=== PATIENT | male | born 1940 | race Caucasian/White ===

== ENCOUNTER → 2021-06-04 10:37 | Outpatient (CLI) | payer MEDICARE, SELFPAY ==
[2021-06-04 11:50] LABS: Thyroid Stim Hormone (TSH) 0.75 uIU/mL (0.358-3.74)
== END ==
PROVIDERS: PCP Student in an Organized Health Care Education/Training Program; Referring Provider Internal Medicine Cardiovascular Disease; Visit Provider Internal Medicine Cardiovascular Disease
DX: R00.1 Bradycardia, unspecified (principal)
CPT/HCPCS: 36415; 84443

== ENCOUNTER → 2021-06-10 09:59 | Outpatient (CLI) | payer MEDICARE, SELFPAY ==
--- NOTE | 2021-06-10 10:06 | ECHOD_ITS ---
Reason For Study: Arrhythmia Procedure This was a 2D Doppler, Color Flow transthoracic echocardiogram. Exam performed in department. Left Ventricle Normal LV size. Left ventricular systolic function is normal. The estimated ejection fraction is 60 %. Normal diastology for age. No regional wall motion abnormalities noted. Right Ventricle Normal RV size. Normal systolic function. Atria Normal left atrium. Normal right atrium. Mitral Valve Normal mitral valve. Mild (1+) mitral valve insufficiency. Tricuspid Valve Normal tricuspid valve. Mild tricuspid valve insufficiency. Pulmonary artery systolic pressure is 30 mmHg. Aortic Valve Normal aortic valve. Trisinus/trileaflet aortic valve. Mild (1+) aortic valve insufficiency. Pulmonic Valve Normal pulmonic valve. Great Vessels Normal aortic root. The pulmonary artery is normal size. Normal inferior vena cava. Pericardium/Pleural No pericardial effusion. MMode/2D Measurements & Calculations LVIDd: 4.8 cm IVSd: 1.2 cm Ao root diam: 4.0 cm LVIDs: 3.0 cm LVPWd: 0.96 cm LA dimension: 3.7 cm RVDd: 4.4 cm FS: 37.3 % LAV(MOD-bp): 55.8 ml LA A4 area: 18.3 cm2 RA A4 area: 18.7 cm2 LAV(MOD-bp) Indexed: 27.9 ml/m2 LAV(MOD-sp2): 67.4 ml LAV(MOD-sp4): 49.0 ml Time Measurements MV dec time: 0.23 sec Doppler Measurements & Calculations MV E max jaya: 67.6 cm/sec Lat Peak E' Jaya: 7.2 cm/sec Med Peak E' Jaya: 9.2 cm/sec MV A max jaya: 49.8 cm/sec E/E' lat: 9.4 E/E' med: 7.3 MV E/A: 1.4 MV V2 max: 69.1 cm/sec MV P1/2t max jaya: 69.5 cm/sec Ao V2 max: 133.7 cm/sec MV max P.9 mmHg MV P1/2t: 86.4 msec Ao max P.2 mmHg MV V2 mean: 32.4 cm/sec MV dec slope: 235.3 cm/sec2 MV mean P.52 mmHg MVA(P1/2t): 2.5 cm2 MV V2 VTI: 27.2 cm LV V1 max: 89.5 cm/sec MR max jaya: 538.4 cm/sec PA V2 max: 117.5 cm/sec LV V1 max P.2 mmHg MR max P.9 mmHg TR max jaya: 257.6 cm/sec TR max P.5 mmHg ECHO/Echo Complete Interpretation Summary Normal LV size. Left ventricular systolic function is normal. The estimated ejection fraction is 60 %. Mild (1+) mitral valve insufficiency. Mild tricuspid valve insufficiency. Ordering Physician: Karl Sanchez Referring Physician: Michael Ramachandran Performed By: Nick Quijano RCS
--- NOTE | 2021-06-10 17:07 | STRESSREP_ITS ---
Stress Test Report Exercise stress test. 81-year-old man with a history of cardiac dysrhythmias. Resting EKG demonstrated sinus bradycardia with a rate of 44 bpm and resting blood pressure of 130/64 mmHg. The patient exercised according to the regular Gio protocol, for total duration of 3 minutes and 9 seconds. The maximum heart rate attained was 150 bpm which was 106% of max impact on heart rate the maximum workload was 4.9 metabolic equivalents. The patient appeared to maintain sinus rhythm throughout the recording with later development of what ap peared to be a junctional tachycardia with a rate of approximately 121 bpm. The patient appeared to stay in this rhythm during recovery for a period of approximately 5 minutes. The test was terminated due to shortness of breath. Frequent mitral ventricular complexes were noted with positive vector delineation in leads II, III and aVF. No runs of sustained tachyarrhythmia were noted. There were no EKG changes suggestive of ischemia. Post exercise prior to the disc continuation of the monitoring the resting EKG demonstrated a junctional tachycardia with a rate of 113 bpm. No significant pauses were noted. Conclusion: Exercise stress test with no EKG changes suggestive of ischemia. Sinus rhythm and junctional tachycardia noted. Premature ventricular complexes present.
== END ==
PROVIDERS: PCP Student in an Organized Health Care Education/Training Program; Referring Provider Internal Medicine Cardiovascular Disease; Visit Provider Internal Medicine Cardiovascular Disease
DX: I47.1 Supraventricular tachycardia (principal); I34.0 Nonrheumatic mitral (valve) insufficiency; R06.02 Shortness of breath
CPT/HCPCS: 93017; 93225; 93226; 93306

== ENCOUNTER → 2021-06-17 09:27 | Outpatient (CLI) | payer MEDICARE, SELFPAY ==
[2021-06-17 09:49] LABS: Absolute Lymphocyte Count 1.17 X10^3/uL (0.83-4.51); Absolute Neutrophil Count 3.1 X10^3/uL (2.0-7.7); Basophil# 0.04 X10^3/uL; Basophil% 0.8 % (0-1); Eosinophil# 0.07 X10^3/uL; Eosinophils% 1.4 % (0-5); Hematocrit 39.5 % (40-54); Hemoglobin 13.5 g/dL (13.0-16.5); Lymphocyte # 1.17 X10^3/ul (0.83-4.51); Lymphocyte % 24.1 % (19-41); Mean Corp Hgb Conc 34.2 g/dL (32-36); Mean Corpuscular Hgb 34.2 pg (27.0-32.0); Monocyte# 0.48 X10^3/uL; Monocyte% 9.9 % (0-10); NRBC Flagged by Analyzer 0 % (0-5); Neutrophil # 3.09 X10^3/uL (2.7-7.7); Neutrophil % 63.6 % (47-70); Platelet Count 226 K/mm3 (150-450); RBC Distribution Width CV 12.8 % (11.6-14.6); RBC Distribution Width SD 47.6 fl (35.1-43.9); Red Blood Count 3.95 M/mm3 (4.6-6.2); White Blood Count 4.9 K/mm3 (4.4-11.0)
[2021-06-17 10:02] LABS: International Normalized Ratio 1.1; Prothrombin Time (Protime)PT. 13.3 SECONDS (11.7-14.9)
[2021-06-17 10:03] LABS: Partial Thromboplast Time 32.2 Seconds (24.1-36.2)
[2021-06-17 10:22] LABS: Anion Gap 7 (5-15); BUN 17 mg/dL (7-18); BUN/Creat Ratio 14.5 RATIO (10-20); Calcium,Total 8.9 mg/dL (8.5-10.1); Chloride 103 mmol/L (98-107); Creatinine, Serum 1.17 mg/dL (0.70-1.30); EST Glomerular Filtration Rate 64 mL/min (>60); Est Glom Filt Rate - Afr Amer 77 mL/min (>60); Glucose 91 mg/dL (74-106); Sodium Level 139 mmol/L (136-145)
== END ==
PROVIDERS: PCP Student in an Organized Health Care Education/Training Program; Referring Provider Internal Medicine Cardiovascular Disease; Visit Provider Internal Medicine Cardiovascular Disease
DX: I49.3 Ventricular premature depolarization (principal); I47.1 Supraventricular tachycardia; I34.0 Nonrheumatic mitral (valve) insufficiency; G31.83 Neurocognitive disorder with Lewy bodies; F02.80 Dementia in other diseases classified elsewhere, unspecified severity, without behavioral disturbance, psychotic disturbance, mood disturbance, and anxiety; D72.819 Decreased white blood cell count, unspecified; D64.9 Anemia, unspecified
CPT/HCPCS: 36415; 80048; 85025; 85610; 85730

== ENCOUNTER 2021-07-10 14:30 | Observation (INO) | payer MEDICARE, SELFPAY ==
--- NOTE | 2021-07-07 15:40 | RAD_ITS ---
STUDY: X-RAY CHEST REASON FOR EXAM: Male, 81 years old. CHEST PAIN ep study TECHNIQUE: XR Chest 2 Views COMPARISON: Prior comparison studies are not available for review at this time. FINDINGS: There are bilateral pleural effusions. There are bilateral infiltrates. Normal size heart. Normal mediastinum and migel. Normal visualized pulmonary arteries. There is atherosclerotic calcification of the aortic arch with tortuosity. There are diffuse degenerative changes of the visualized thoracic spine. There is degenerative osteoarthritis of the bilateral shoulders. There is no demonstrated abnormality of the visualized soft tissue structures of the upper abdomen. RAD/Chest PA and Lateral IMPRESSION: There are no acute findings. Electronically Signed: Chalino Espinoza MD at 16:36 EST , Service support ,
[2021-07-07 16:17] LABS: Absolute Neutrophil Count 2.9 X10^3/uL (2.0-7.7); Basophil# 0.05 X10^3/uL; Eosinophil# 0.11 X10^3/uL; Eosinophils% 2.3 % (0-5); Hematocrit 40.7 % (40-54); Hemoglobin 13.7 g/dL (13.0-16.5); Lymphocyte % 26.8 % (19-41); Mean Corp Hgb Conc 33.7 g/dL (32-36); Mean Corpuscular Hgb 33.7 pg (27.0-32.0); Mean Platelet Vol. 10.1 fl (6.2-12.0); Monocyte% 10.3 % (0-10); NRBC Flagged by Analyzer 0 % (0-5); Neutrophil # 2.88 X10^3/uL (2.7-7.7); Neutrophil % 59.4 % (47-70); Platelet Count 240 K/mm3 (150-450); RBC Distribution Width CV 12.8 % (11.6-14.6); RBC Distribution Width SD 47.6 fl (35.1-43.9); Red Blood Count 4.07 M/mm3 (4.6-6.2); White Blood Count 4.9 K/mm3 (4.4-11.0)
[2021-07-07 17:00] LABS: Anion Gap 5 (5-15); BUN 23 mg/dL (7-18); BUN/Creat Ratio 19.8 RATIO (10-20); Calcium,Total 8.9 mg/dL (8.5-10.1); Chloride 104 mmol/L (98-107); Creatinine, Serum 1.16 mg/dL (0.70-1.30); EST Glomerular Filtration Rate 65 mL/min (>60); Est Glom Filt Rate - Afr Amer 78 mL/min (>60); Glucose 89 mg/dL (74-106); Potassium 4.4 mmol/L (3.5-5.1); Sodium Level 137 mmol/L (136-145)
[2021-07-09 07:32] VITALS: BMI 21.5
[2021-07-10] VITALS (9 sets, daily range): BP systolic 112–131; BP diastolic 60–84; PULSE 39–63; RESP 16–22; TEMP 36.6; O2SAT 92–99; BMI 21.5
--- NOTE | 2021-07-10 14:10 | OP.PCM_ITS ---
Operative Report Date of Procedure: 07/10/21 History: [ ] Electrophysiology Report The Patient was brought to the EP Catheterization Laboratory at [facility] after informed consent and assessment of anesthesia / sedation. Intermittent bolus of Versed and Fentanyl were used for sedation and analgesia. The right groin was prepped and draped in usual sterile manner. Using the Seldinger technique the femoral vein was accessed 3 times and diagnostic electrophysiology catheters were positioned in the high right atrium, His and right ventricle and CS/LA. Programmed stimulation (pacing and mapping) were completed of the right atrium, and right ventricle and CS/LA were completed at baseline state and during 3 ugm/minute Isuprel Infusion. Findings: Surface Measurements: MI: 270 QRS: 100normal Morphology: normal QT: 460ms BASELINE ISUPREL SCL: 1490 SCL: 1010 AH: 170 AH: 120 HV: 45 HV: 45 MAXIMUM SNRT: 1900 CSNRT: 510 AVBCL: 700 AVBCL: VABCL: vad VABCL: DECREMENTAL CONDUCTION? [ Y N] DECREMENTAL CONDUCTION? 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 ABLATION OF: atrial flutter ABLATION PARAMETERS: 40 W 60 SECONDS ABLATION CATHETER USED: irrigated tip RESULTS OF ABLATION SITE OF ABLATION: CTI and Slow Pathway SUCCESSFUL Ablation of CTI flutter with confirmation of bidirectional conduction block Successful SP ablation for typical AVNRT POST ABLATION TESTING BASELINE ISUPREL SCL: 1290 SCL: 890 AH: [ ] AH: [ ] HV: [ ] HV: [ ] AVBCL: >600 AVBCL: 570 VA BCL:VAD VA BCL: VAD BIDIRECTIONAL BLOCK ACHIEVED: [Y N] SEPTAL TO LATERAL BLOCK CONDUCTION TIME: [ ] LATERAL TO SEPTAL BLOCK CONDUCTION TIME: [ ] CONCLUSIONS: SUCCESSFUL Ablation of CTI flutter with confirmation of bidirectional conduction block 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
[2021-07-10] MEDS: Memantine Hydrochloride 10 MG Tablet PO (21:45)
--- NOTE | 2021-07-10 23:22 | PCS.PANDOC ---
PANDEMIC DOCUMENTATION INITIATED: Date: 04/07/2021 Time: 190
[2021-07-11 02:00] VITALS: PULSE 53
[2021-07-11 04:20] VITALS: BP 130/86; PULSE 53; RESP 18; TEMP 36.6; O2SAT 98
--- NOTE | 2021-07-11 05:31 | EKG12_ITS ---
Test Reason : AM EKG Blood Pressure : / mmHG Vent. Rate : 054 BPM Atrial Rate : 054 BPM P-R Int : 242 ms QRS Dur : 100 ms QT Int : 448 ms P-R-T Axes : 029 -21 034 degrees QTc Int : 424 ms Sinus bradycardia with 1st degree A-V block with Premature atrial complexes Otherwise normal ECG When compared with ECG of 10-JUN-2021 10:53, MANUAL COMPARISON REQUIRED, DATA IS UNCONFIRMED Confirmed by EDER DOWNING, JUSTEN ([id number]), mapping editor KOREY DEJESUS ([id number]) on 07/11/2021 2:17:08 P M Referred By: Pedro Wall Confirmed By:SUSI GAINES MD
[2021-07-11 07:00] VITALS: PULSE 54
--- NOTE | 2021-07-11 07:27 | PN.CARD_ITS ---
Subjective Subjective Patient seen and evaluated. Appears to be doing quite well this morning. Objective Data Vital Signs: Vital Signs Temp Pulse Resp BP Pulse Ox 97.9 F 53 L 18 130/86 H 98 07/11/21 04:20 07/11/21 04:20 07/11/21 04:20 07/11/21 04:20 07/11/21 04:20 Oxygen Delivery Method Room Air Weight: 165 lb 9.074 oz Body Mass Index (BMI) 21.5 Intake & Output: Intake and Output for Last 24 Hours 07/09/21 07/10/21 07/11/21 23:59 23:59 23:59 Intake Total 240 / 240 Output Total 350 / 350 Balance -110 / -110 Lab / Micro Data Result Diagrams: 07/07/21 16:01 07/07/21 16:01 Cardiology Labs/Tests Rhythm: EKG: ECHO: Stress Test: Cardiac Cath: PCI: CT Surgery: Holter monitor: EPS: PPM: CXR: Chest CT Scan: Physical Exam Const alert, oriented x3 and no apparent distress General Appearance: cooperative HEENT hearing grossly normal bilaterally Head and Scalp: atraumatic Eyes EOMs intact bilaterally Neck General: normal visual inspection Chest inspection of chest normal and palpation of chest normal Resp normal respiratory effort Auscultation: clear to auscultation bilaterally Cardio regular rate, regular rhythm, S1 normal heart sound and S2 normal heart sound Jugular Venous Distention: JVD GI normal to inspection, nondistended, normoactive bowel sounds Extremity normal capillary refill and no pedal edema Peripheral Pulses: Yes pulses 2+ throughout and femoral pulses present Skin no rashes or lesions noted Neuro oriented x3 and CN's II-XII intact bilaterally Psych Appearance: grossly normal and appropriate Assessment & Plan Assessment/Plan (1) History of radiofrequency ablation procedure for cardiac arrhythmia: PLAN: He is status post radiofrequency ablation for junctional tachycardia. He appears to be doing quite well this morning. EKG done this mo rning demonstrates sinus bradycardia with a rate of 49 bpm. Patient's groin appears to be stable. He will be discharged for outpatient follow-up.
--- NOTE | 2021-07-11 07:29 | PCM.DC ---
Discharge Instructions Diet Discharge Diet: Low fat / Low cholesterol and 2000 Calorie Control Diet Activity Lifting Restrictions: 10 pounds and also avoid any pushing or pulling for 3 days after your test. Additional Activity Instructions:: You must have someone drive you home. Do not drive until instructed by your doctor. You must have someone stay with you all night after your test. Rest in bed or on the couch until the next morning. Limit the number of times you go up and down stairs the day of your test. Apply pressure to the puncture site if you sneeze or cough. Dressing / Incision Call your doctor if your incision/area has: Continuous Slow Oozing, Increased Pain/ Swelling, Increased Redness and Swelling at the incision site Call your doctor if you observe: Numbness or Tingling Additional Dressing/Incision Instructions:: Keep the dressing (bandage) on until the next morning. You may then shower, but do not take a tub bath for 5 days after your test. It is normal to have some tenderness and discomfort at the puncture site. Sometimes bruising also occurs. However, if pain, numbness, or coldness occurs below the puncture site (in your leg, toes, arms or fingers) call your doctor at once. You may have a small, marble sized knot at the puncture site. This is normal. Do not rub it. It will go away in 4-6 weeks. Bleeding can occur from the area where the puncture was done. Blood may spurt or drip from the site. If blood spurts, apply pressure right away to stop bleeding and call 911. Although rare, bleeding into the tissue (hematoma) can also occur. If this happens, a large, firm area goose egg under the skin will appear. If any of these occur, lie down as flat as you can and have someone apply firm pressure to the cath site with a gauze pad or a clean washcloth for 10-15 minutes. Call 911 or go to the Emergency Department. Follow Up Care When: Follow-up in [facility] office Test Results: Test results from this visit will be discussed in further detail at your follow-up appointment, if applicable. Discharge Plan Admission Admit Date/Time: 07/10/21 14:30 Attending Provider: Karl Sanchez Primary Care Provider: Michael Ramachandran Discharge Orders/Prescriptions Prescriptions: No Action Research Medications PO RF: 0 memantine 10 mg tablet 10 mg PO BID RF: 0 cyanocobalamin (vitamin B-12) 1,000 mcg capsule 1,000 mcg PO DAILY RF: 0 aspirin [Adult Aspirin Regimen] 81 mg tablet,delayed release (DR/EC) 81 mg PO DAILY RF: 0 cholecalciferol (vitamin D3) 50 mcg (2,000 unit) capsule 50 mcg PO DAILY RF: 0 ibuprofen 200 mg capsule 400 mg PO Q6H PRN (Reason: Pain) RF: 0 pravastatin 10 mg tablet 10 mg PO DAILY RF: 0 turmeric 400 mg capsule 400 mg PO DAILY RF: 0 Referrals / Follow Up: Michael Ramachandran DO [Primary Care Provider] - Disposition Disposition (needs filled in before D/C Order can be placed): Home, Self Care
--- NOTE | 2021-07-11 09:29 | PHA.DC.MR ---
Pharmacy Service has performed discharge medication reconciliation for this patient. The patient's discharge medication list was reviewed for discrepancies and discrepancies were resolved. Home Medications Research Medications PO 05/29/21 aspirin 81 mg tablet,delayed release 81 mg PO DAILY 05/29/21 cholecalciferol (vitamin D3) 50 mcg (2,000 unit) capsule 50 mcg PO DAILY 05/29/21 cyanocobalamin (vitamin B-12) 1,000 mcg capsule 1,000 mcg PO DAILY 05/29/21 ibuprofen 200 mg capsule 400 mg PO Q6H PRN cap 05/29/21 memantine 10 mg tablet 10 mg PO BID 05/29/21 pravastatin 10 mg tablet 10 mg PO DAILY tab 07/07/21 turmeric 400 mg capsule 400 mg PO DAILY cap 07/07/21
[2021-07-11] MEDS: Pravastatin 20 MG Tablet 10 MG PO (10:39)
[2021-07-11] MEDS: Cholecalciferol (VIT D3) 25 MCG TABLET (1,000 UNITS) 50 MCG PO (10:39)
[2021-07-11] MEDS: Cyanocobalamin 500 MCG Tablet 1000 MCG PO (10:39)
[2021-07-11] MEDS: Aspirin E.C. 81 MG Tablet PO (10:40)
[2021-07-11] MEDS: Memantine Hydrochloride 10 MG Tablet PO (10:40)
[2021-07-11 10:43] VITALS: BP 130/86; PULSE 53; RESP 18; TEMP 36.6; O2SAT 98
== END 2021-07-11 07:28 | disposition home or self-care (01) ==
LOC: PCU 15:35
PROVIDERS: Admitting Provider Internal Medicine Cardiovascular Disease; PCP Student in an Organized Health Care Education/Training Program; Visit Provider Internal Medicine Cardiovascular Disease
DX: R00.1 Bradycardia, unspecified (principal); I48.92 Unspecified atrial flutter; R00.0 Tachycardia, unspecified; I45.9 Conduction disorder, unspecified; G31.83 Neurocognitive disorder with Lewy bodies; F02.80 Dementia in other diseases classified elsewhere, unspecified severity, without behavioral disturbance, psychotic disturbance, mood disturbance, and anxiety; I44.0 Atrioventricular block, first degree; M19.90 Unspecified osteoarthritis, unspecified site; Z79.82 Long term (current) use of aspirin; Z79.899 Other long term (current) drug therapy; Z87.891 Personal history of nicotine dependence
CPT/HCPCS: 36415; 71046; 80048; 85025; 93005; 93609; 93620; 93621; 93623; 93653; 99152; 99153; 99218; C1730; C1731; J7040; Q9967; C1894; G0378

== ENCOUNTER 2022-10-27 10:22 | Emergency (ER) | payer MEDICARE, SELFPAY ==
[2022-10-27 10:22] VITALS: BP 116/80; PULSE 68; RESP 18; TEMP 36.2; O2SAT 100; BMI 26.4
[2022-10-27 10:27] VITALS: BMI 26.4
--- NOTE | 2022-10-27 10:47 | CT_ITS ---
STUDY: CT BRAIN WITHOUT CONTRAST REASON FOR EXAM: Male, 82 years old. fall/trauma RADIATION DOSAGE (If Supplied By Facility): CTDIvol = ( 44.99 ) mGy, DLP = ( 897.35 ) mGycm TECHNIQUE: Transaxial CT imaging of the brain was performed without administration of intravenous contrast material. Individualized dose optimization techniques were used for this CT. COMPARISON: No relevant priors. FINDINGS: Normal soft tissue structures. Normal calvarium. There is moderate cerebral atrophy with widening of the extra-axial spaces and ventricular dilatation. There are areas of decreased attenuation within the white matter tracts of the supratentorial brain, consistent with microvascular disease changes. Normal basal ganglia and thalami. Normal brainstem. There is mild cerebellar atrophy. There is no intracranial hemorrhage. There are no findings of an acute ischemic infarction. Atherosclerotic calcification of the cavernous portions of the internal carotid arteries bilaterally. Normal visualized paranasal sinuses. CT/Brain/Head without Contrast IMPRESSION: Chronic involutional changes of the brain. Electronically Signed: Aristeo Chinchilla MD at 11:57 EST ,
--- NOTE | 2022-10-27 10:47 | CT_ITS ---
STUDY: CT CERVICAL SPINE WITHOUT CONTRAST REASON FOR EXAM: Male, 82 years old. Fall/pain RADIATION DOSAGE (If Supplied By Facility): CTDIvol = ( 17.26 ) mGy, DLP = ( 391.80 ) mGycm TECHNIQUE: High resolution transaxial imaging was performed without contrast material. Sagittal and coronal images were reconstructed. Individualized dose optimization techniques were used for this CT. COMPARISON: None FINDINGS: Normal craniovertebral junction. There are degenerative changes of the anterior atlantoaxial articulation. Normal odontoid process. Normal cervical lordosis. Normal vertebral bodies and posterior osseous elements. C2-3: Facet joint osteoarthritis. C3-4: Marked degree of disc space narrowing. Facet joint osteoarthritis and hypertrophy with mild degree of bilateral neural foraminal stenosis. There is retrolisthesis of C3 on C4. Mild degree of bilateral neural foraminal stenosis and central canal stenosis. C4-5: Marked degree of disc space narrowing. Spondylosis. Uncovertebral arthrosis. Facet joint osteoarthritis and hypertrophy. Bilateral neural foraminal stenosis. C5-6: Marked degree of disc space narrowing. Spondylosis. Uncovertebral arthrosis and hypertrophy of the facet joints. Bilateral neural foraminal stenosis. C6-7: Disc space narrowing and spondylosis. Atherosclerotic plaque formation of the carotid bifurcations. CT/Spine Cervical without Contras IMPRESSION: Multilevel degenerative changes, as described above. Retrolisthesis of C3 on C4 most likely secondary to the facet joint osteoarthritis. Electronically Signed: Aristeo Chinchilla MD at 12:01 EST ,
--- NOTE | 2022-10-27 10:48 | EDS_ITS ---
HPI HPI - Fall History of Present Illness Chief Complaint: Fall Informant: patient and spouse/S.O. Occured/Mechanism Occurred: Yesterday Narrative: Walking outdoors on sidewalk, states it was windy and a small tree branch blew and hit him in the back of the head and he lost his balance and fell forward Usually ambulates: Cane (Sometimes; otherwise without assistance) Pain/Injury Pain Location: head, face and neck Quality of Pain: Aching (Intermittent) Current Severity: Mild Maximum Severity: Moderate Worsened by: Nothing in particular Relieved by: Rest Associated Symptoms Associated Symptoms: Negative for Parasthesias, Weakness, Loss of function, Inability to ambulate, Loss of consciousness or Amnesia Narrative Narrative: Patient has dementia. He was having some hip pain yesterday, but it went away and then he went out for a walk outside, see above. He fell down to the sidewalk hitting the right side of his face. He looks similar today, he just had cataract surgery so we went to see Dr. Ramos today and was cleared with regards to his eyes, but is here for evaluation of his injuries. The pain that he has is mostly in the back of his head/upper neck, it is intermittent, states he winces at times when he has it. The description from the fall was given to me by the patient he states he remembers it. His was not there during that. He has some abrasions on his face which are sore but he denies any significant pain. He is on no anticoagulants, he takes a baby aspirin. [facility] Medical History Anemia AVNRT (AV reina re-entry tachycardia) Bradycardia DDD (degenerative disc disease), lumbar Diverticulosis Junctional tachycardia Leukopenia Lewy body dementia Multiple premature ventricular complexes Nonrheumatic mitral (valve) insufficiency Osteoarthritis Home Medications aspirin 81 mg tablet,delayed release (Adult Aspirin Regimen) 81 mg PO DAILY 05/29/21 [History Last Taken Unknown] cholecalciferol (vitamin D3) 50 mcg (2,000 unit) capsule 50 mcg PO DAILY 05/29/21 [History Last Taken 07/10/21] cyanocobalamin (vitamin B-12) 1,000 mcg capsule 1,000 mcg PO DAILY 05/29/21 [History Last Taken 07/10/21] ibuprofen 200 mg capsule 400 mg PO Q6H PRN Pain 05/29/21 [History Last Taken Unknown] memantine 10 mg tablet 10 mg PO BID 05/29/21 [History Last Taken 07/10/21] pravastatin 10 mg tablet 10 mg PO DAILY 07/07/21 [History Last Taken 07/10/21] turmeric 400 mg capsule 400 mg PO DAILY 07/07/21 [History Last Taken Unknown] Allergy/AdvReac Type Severity Reaction Status Date / Time No Known Allergies Allergy Verified 10/27/22 10:25 Family History Father Cancer lung cancer Mother Cancer Other Heart disease Surgical History History of radiofrequency ablation procedure for cardiac arrhythmia (07/10/21) Social History Smoking Status: Former smoker quit date: 08/23/83 alcohol intake: current alcohol intake frequency: a few times a week Alcohol type: beer substance use type: does not use caffeine: Yes Type: coffee Number of servings: 6 ROS ROS ED Review of Systems ROS Unobtainable: other Details: Somewhat limited due to dementia but patient provides excellent ROS Constitutional Constitutional ED: Denies chills or fever(s) Eyes Eyes: Reports other Details: Vision changes but not since before the fall; patient just had cataract surgery a couple days ago ; Denies diplopia ENT ENT ED: Denies ear pain, epistaxis, facial pain or rhinorrhea Cardiovascular Cardiovascular: Denies chest pain Respiratory/Chest Respiratory/Chest: Denies cough or dyspnea Gastrointestinal Gastrointestinal: Denies abdominal pain, nausea or vomiting Genitourinary Genitourinary ED: Denies dysuria or hematuria Musculoskeletal Musculoskeletal: Reports neck pain; Denies back pain or extremity pain Integumentary Reports Abrasions; Denies abscess, laceration or rash Neurologic Neurologic: Reports confusion, headache(s) and other Details: Confusion due to dementia, no changes compared with prior to the fall ; Denies paresthesias or weakness EXAM Physical Exam Const Vital Signs: 10/27/22 10:22 10/27/22 11:14 Temperature 97.1 F L Temperature Source Temporal Pulse Rate 68 Respiratory Rate 18 Respiratory Effort Normal Non-Labored Blood Pressure 116/80 Blood Pressure Mean 92 Pulse Ox 100 Oxygen Delivery Method Room Air Positive well nourished and well developed General Appearance ED: well developed and NAD HEENT Reports TM's clear and nasal mucous membranes and turbinates normal HEENT Narrative: Mild facial tenderness between the superior orbital brim and the zygomatic arch, both of which are nontender. Multiple abrasions right forehead and right periorbital including just below the eye. No infraorbital hypoesthesia. Nasal bridge abrasion without any bony tenderness or deformity. No epistaxis. No malocclusion or trismus, no intraoral injury. Face and Sinus: facial tenderness Tympanic Membrane ED: Yes TM's clear Eyes PERRL and EOMs intact bilaterally Visual Acuity: other Other Details: no entrapment or pain with extraocular movements Neck full ROM and supple General: Negative for tenderness Chest Wall inspection of chest normal and palpation of chest normal Chest: symmetrical chest wall rise; Negative for crepitus or tenderness Resp normal respiratory effort and clear to auscultation bilaterally Percussion: other equal BS bilat Cardio Rate: regular rate; Negative for tachycardic Rhythm: regular rhythm GI normal to inspection, nondistended, normoactive bowel sounds, soft to palpation and non-tender Back/Spine normal ROM Cervical Spine: Negative for cervical spine tenderness Thoracic Spine / Upper Back: Negative for thoracic spinal tenderness Lumbar Spine / Lower Back: Negative for lumbar spinal tenderness Extremity normal to inspection and full ROM General Extremety ED: Negative for tenderness Neuro CN's II-XII intact bilaterally, moves all extremities, no focal motor deficits and no sensory deficits noted [place] Coma Scale: document GCS findings Spontaneous Obeys Commands Oriented 15 Sensorium / Orientation: awake, alert, oriented to person and oriented to place Psych mental status grossly normal and thought process normal Skin no wounds Lesions: no lesions Rashes: no rashes MDM MDM MDM Narrative Medical decision making narrative: See the of the brain and cervical spine were obtained. I reviewed the images. My interpretation of the CT agrees with that of the radiologist. Everything negative for any acute. Solve the retrolisthesis of C3 on C4, I agree with this being related to arthritis he has no tenderness there to suggest an acute fracture/dissociation of these vertebrae. Reassured, discharged home supportive care advised, family/ is comfortable with that plan. Radiography Diagnostic Testing: Clinical Impression(s) from Imaging Studies Brain CT 10/27/22 10:47 IMPRESSION: Chronic involutional changes of the brain. Electronically Signed: Aristeo Chinchilla MD at 11:57 EST , Cervical Spine CT 10/27/22 10:47 IMPRESSION: Multilevel degenerative changes, as described above. Retrolisthesis of C3 on C4 most likely secondary to the facet joint osteoarthritis. Electronically Signed: Aristeo Chinchilla MD at 12:01 EST , Discharge Plan Triage Chief Complaint: Fall ED Provider: Tomi Sargent Dx/Rx/DC Orders Clinical Impression: Acute cervical myofascial strain, Fall from slip, trip, or stumble, Closed head injury without loss of consciousness, Abrasion of face Instructions: ED Neck Sprain or Strain Prescriptions: No Action memantine 10 mg tablet 10 mg PO BID cyanocobalamin (vitamin B-12) 1,000 mcg capsule 1,000 mcg PO DAILY aspirin [Adult Aspirin Regimen] 81 mg tablet,delayed release (DR/EC) 81 mg PO DAILY cholecalciferol (vitamin D3) 50 mcg (2,000 unit) capsule 50 mcg PO DAILY ibuprofen 200 mg capsule 400 mg PO Q6H PRN (Reason: Pain) pravastatin 10 mg tablet 10 mg PO DAILY turmeric 400 mg capsule 400 mg PO DAILY Primary Care Provider: Michael Ramachandran Referrals: Michael Ramachandran, [Primary Care Provider] - 1 Week if not improving Disposition Disposition: Home, Self Care
[2022-10-27 13:10] VITALS: BP 124/88; PULSE 67; RESP 15; O2SAT 95
== END 2022-10-27 13:11 | disposition home or self-care (01) ==
PROVIDERS: Emergency Provider Emergency Medicine; PCP Student in an Organized Health Care Education/Training Program; Visit Provider Emergency Medicine
DX: S16.1XXA Strain of muscle, fascia and tendon at neck level, initial encounter (principal); F03.90 Unspecified dementia, unspecified severity, without behavioral disturbance, psychotic disturbance, mood disturbance, and anxiety; S00.81XA Abrasion of other part of head, initial encounter; Z87.891 Personal history of nicotine dependence; R51.9 Headache, unspecified; M47.819 Spondylosis without myelopathy or radiculopathy, site unspecified; S09.90XA Unspecified injury of head, initial encounter; W01.198A Fall on same level from slipping, tripping and stumbling with subsequent striking against other object, initial encounter
CPT/HCPCS: 70450; 72125; 99282

== ENCOUNTER → 2023-01-28 | Outpatient (REF) | payer MEDICARE, SELFPAY ==
[2023-01-28 07:19] LABS: Hematocrit 36.6 % (40-54); Hemoglobin 12.1 g/dL (13.0-16.5); Mean Corp Hgb Conc 33.1 g/dL (32-36); Mean Corpuscular Volume 102.8 fL (80-94); Mean Platelet Vol. 10.1 fl (6.2-12.0); Platelet Count 214 K/mm3 (150-450); RBC Distribution Width CV 13.2 % (11.6-14.6); RBC Distribution Width SD 50.4 fl (35.1-43.9); Red Blood Count 3.56 M/mm3 (4.6-6.2); White Blood Count 4.5 K/mm3 (4.4-11.0)
[2023-01-28 07:50] LABS: AST(SGOT) 20 U/L (15-37); Alanine Aminotransfer ALT/SGPT 26 U/L (16-61); Albumin, Serum 3.2 g/dL (3.2-5.0); Alkaline Phosphatase 101 U/L (45-117); Anion Gap 4 (5-15); BUN 24 mg/dL (7-18); BUN/Creat Ratio 22.9 RATIO (10-20); Calcium,Total 8.4 mg/dL (8.5-10.1); Chloride 108 mmol/L (98-107); Creatinine, Serum 1.05 mg/dL (0.70-1.30); EST Glomerular Filtration Rate 72 mL/min (>60); Est Glom Filt Rate - Afr Amer 87 mL/min (>60); Globulin 3.1 g/dL (2.2-4.2); Glucose 79 mg/dL (74-106); Potassium 4.1 mmol/L (3.5-5.1); Protein, Total 6.3 g/dL (6.4-8.2); Sodium Level 139 mmol/L (136-145); Thyroid Stim Hormone (TSH) 2.56 uIU/mL (0.358-3.74)
== END ==
LOC: OLS.DANBUR 05:00
PROVIDERS: PCP Student in an Organized Health Care Education/Training Program; Visit Provider Student in an Organized Health Care Education/Training Program
DX: D72.819 Decreased white blood cell count, unspecified (principal); D64.9 Anemia, unspecified; Z79.899 Other long term (current) drug therapy
CPT/HCPCS: 36415; 80053; 84443; 85027

== ENCOUNTER → 2023-04-01 | Outpatient (REF) | payer MEDICARE, SELFPAY ==
[2023-04-01 09:38] LABS: Hematocrit 41.6 % (40-54); Hemoglobin 13.7 g/dL (13.0-16.5); Mean Corp Hgb Conc 32.9 g/dL (32-36); Mean Corpuscular Hgb 33.8 pg (27.0-32.0); Mean Corpuscular Volume 102.7 fL (80-94); Mean Platelet Vol. 10.6 fl (6.2-12.0); Platelet Count 220 K/mm3 (150-450); RBC Distribution Width CV 12.7 % (11.6-14.6); RBC Distribution Width SD 48.8 fl (35.1-43.9); Red Blood Count 4.05 M/mm3 (4.6-6.2); White Blood Count 4.2 K/mm3 (4.4-11.0)
[2023-04-01 09:50] LABS: Vitamin B12 1336 pg/mL (211-911); Vitamin D,25 Hydroxy 41.8 ng/mL
[2023-04-01 09:55] LABS: AST(SGOT) 23 U/L (15-37); Alanine Aminotransfer ALT/SGPT 24 U/L (16-61); Albumin, Serum 3.6 g/dL (3.2-5.0); Alkaline Phosphatase 105 U/L (45-117); Anion Gap 5 (5-15); BUN 25 mg/dL (7-18); BUN/Creat Ratio 22.3 RATIO (10-20); Calcium,Total 8.6 mg/dL (8.5-10.1); Chloride 107 mmol/L (98-107); Creatinine, Serum 1.12 mg/dL (0.70-1.30); EST Glomerular Filtration Rate 67 mL/min (>60); Est Glom Filt Rate - Afr Amer 81 mL/min (>60); Ferritin 261 ng/mL (26-388); Globulin 3.6 g/dL (2.2-4.2); Glucose 82 mg/dL (74-106); Iron 152 ug/dL (65-175); Iron Binding Capacity,Total 301 ug/dL (250-450); PERCENT IRON SATURATION 50.5 % (15.0-55.0); Potassium 4.1 mmol/L (3.5-5.1); Protein, Total 7.2 g/dL (6.4-8.2); Sodium Level 140 mmol/L (136-145)
== END ==
LOC: OLS.DANBUR 04:00
PROVIDERS: PCP Student in an Organized Health Care Education/Training Program; Referring Provider Student in an Organized Health Care Education/Training Program; Visit Provider Student in an Organized Health Care Education/Training Program
DX: D64.9 Anemia, unspecified (principal); G31.83 Neurocognitive disorder with Lewy bodies; D72.819 Decreased white blood cell count, unspecified; Z79.899 Other long term (current) drug therapy
CPT/HCPCS: 36415; 80053; 82306; 82607; 82728; 83540; 83550; 85027

== ENCOUNTER 2023-05-23 21:25 | Observation (INO) | payer MEDICARE, SELFPAY ==
[2023-05-23 21:27] VITALS: BP 142/86; PULSE 79; RESP 13; TEMP 36.4; O2SAT 97; BMI 30.9
--- NOTE | 2023-05-23 22:04 | EDS_ITS ---
HPI History of Present Illness Chief Complaint: Weakness [facility] Medical History Anemia AVNRT (AV reina re-entry tachycardia) Bradycardia DDD (degenerative disc disease), lumbar Diverticulosis Junctional tachycardia Leukopenia Lewy body dementia Multiple premature ventricular complexes Nonrheumatic mitral (valve) insufficiency Osteoarthritis Home Medications aspirin 81 mg tablet,delayed release (Adult Aspirin Regimen) 81 mg PO DAILY 05/29/21 [History Last Taken Unknown] cholecalciferol (vitamin D3) 50 mcg (2,000 unit) capsule 50 mcg PO DAILY 05/29/21 [History Last Taken 07/10/21] cyanocobalamin (vitamin B-12) 1,000 mcg capsule 1,000 mcg PO DAILY 05/29/21 [History Last Taken 07/10/21] ibuprofen 200 mg capsule 400 mg PO Q6H PRN Pain 05/29/21 [History Last Taken Unknown] memantine 10 mg tablet 10 mg PO BID 05/29/21 [History Last Taken 07/10/21] pravastatin 10 mg tablet 10 mg PO DAILY 07/07/21 [History Last Taken 07/10/21] turmeric 400 mg capsule 400 mg PO DAILY 07/07/21 [History Last Taken Unknown] furosemide 40 mg tablet 40 mg PO DAILY #90 tabs 03/16/23 [Rx Last Taken Unknown] loperamide 2 mg tablet 2 mg PO Q6H PRN 03/16/23 [History Last Taken Unknown] potassium chloride 20 mEq tablet,extended release 20 meq PO DAILY #90 tabs 03/16/23 [Rx Last Taken Unknown] quetiapine 25 mg tablet (Seroquel) 25 mg PO QHS 03/16/23 [History Last Taken Unknown] Allergy/AdvReac Type Severity Reaction Status Date / Time No Known Allergies Allergy Verified 03/16/23 10:41 Family History Father Cancer lung cancer Mother Cancer Other Heart disease Surgical History History of radiofrequency ablation procedure for cardiac arrhythmia (07/10/21) Social History Smoking Status: Former smoker quit date: 08/23/83 alcohol intake: current alcohol intake frequency: a few times a week Alcohol type: beer substance use type: does not use caffeine: Yes Type: coffee Number of servings: 6 EXAM Physical Exam Const Vital Signs: 05/23/23 21:27 05/23/23 22:30 05/23/23 23:30 Temperature 97.6 F L 98.4 F 98.2 F Temperature Source Temporal Oral Oral Pulse Rate 79 60 59 L Respiratory Rate 13 16 16 Blood Pressure 142/86 H 138/77 H 141/82 H Blood Pressure Mean 104 97 101 Pulse Ox 97 98 98 Oxygen Delivery Method Room Air 05/23/23 23:49 Temperature 98.1 F Temperature Source Oral Pulse Rate 60 Respiratory Rate 16 Blood Pressure 142/80 H Blood Pressure Mean 100 Pulse Ox 98 Oxygen Delivery Method Room Air MDM MDM MDM Narrative Medical decision making narrative: HISTORY OF PRESENT ILLNESS: 82-year-old male here with concern for diffuse weakness, feeling unsteady, feeling like he may have a cold. The patient does not provide lab history. History is provided by patient's , friend, EMS and patient's assisted living facility. Per them the patient has been displaying diffuse weakness and difficulty ambulating and possibly multiple falls over the last several days. Last known well was Wednesday. No focal weakness endorsed. No fever no vomiting no abdominal pain no urinary complaints endorsed by any of the historians. REVIEW OF SYSTEMS: Pertinent positives: Weakness, chills Pertinent negatives: Difficult to ascertain neck review of systems given the patient's baseline altered mental status PHYSICAL EXAM: Nursing triage notes reviewed, Vital signs reviewed Constitutional: please see mdm HENT: MMM Eyes: Pupils equal round and reactive to light, Extraocular muscles intact Neck: No stridor, no JVD, full neck ROM Lungs: Clear to auscultation, No wheezing or rales. No increased work of breathing, no conversational dyspnea, no accessory muscle use, no nasal flaring. No respiratory distress noted Heart: Regular rate and rhythm, No murmurs, No rubs and No gallops, 2+ distal pulses (radial, femoral, posterior tibial) in all extremities Abdomen: Soft, there is no tenderness, rigidity, rebound or guarding, no obvious peritoneal signs, no palpable pulsatile abdominal masses, no auscultated abdominal bruit : No CVAT Extremities: No edema Neuro: Alert, oriented to person but not place or time. (Baseline per patient's family). No focal loss of movement or sensation however there is 3-5 weakness in bilateral lower extremities. Skin: No rash or lesions noted MEDICAL DECISION MAKING: Chief Complaint: Diffuse weakness External records reviewed: Recent ED visit, last ejection fraction documented 60% per cardiology note on 03/16/2023 Factors affecting care: History of AVNRT, Lewy body dementia, Social determinants of health: Elderly, former smoker History obtained from others: EMS, skilled nurse facility, , family for Consults: none MDM Narrative: Was hemodynamically stable, afebrile, nontoxic-appearing. There is weakness noted in bilateral lower extremities however no focal neurologic deficits. I considered the following differential diagnosis: ICH, traumatic injury of the spine, UTI, pneumonia, COVID, anemia, electrolyte normality, ACS, arrhythmia ALL IMAGES (IF OBTAINED) HAVE BEEN PERSONALLY REVIEWED AND INTERPRETED BY MYSELF. EKG with normal sinus rhythm, left axis deviation, per scree AV block, no STEMI, frequent PVCs COVID-negative CBC without significant cytosis, there is mild baseline anemia, there is no thrombocytopenia BMP with mild hypokalemia otherwise no significant electrolyte abnormalities, no anion gap or ISABEL noted LFTs show no evidence of hepatobiliary pathology. Troponin is negative, no evidence of myocardial ischemia I have personally reviewed the patient's chest x-ray. Chest x-ray is unremarkable for pulmonary edema, pneumothorax, pneumonia or focal cardiopulmonary abnormality. CT scan of the head shows no evidence of ICH Urinalysis shows no evidence of urinary inflammation suggestive of UTI The amalgamation of the patient's labs and images did not reveal any evidence of a life or limb threatening process including metabolic, infectious, traumatic etiologies. No signs of myocardial ischemia on EKG or troponin. No signs of infection such as pneumonia, COVID or UTI. I suspect the patient's presentation is a progression of his Lewy body dementia and he likely needs a higher level of care than assisted living. Given this I admitted the patient to medicine for observation and possible placement. Discussed with medicine physician The patient and/or family, caregivers express understanding. The patient and/or family, caregivers agrees with the plan. Shared decision making: I will have a discussion with the patient and or visitors regarding risk/benefits of further testing or admission. They will be made aware of of the risk/benefits inherent in this decision they will be given the opportunity to voice understanding. Total critical care time today provided was at least 0 minutes. This excludes separately billable procedures. Critical care time (if documented) is secondary to the patient having high probability of clinically significant/life threatening deterioration in the patient's condition which required my urgent intervention. Impression: 1. Diffuse weakness 2. Gait abnormality 3. History of Lewy body dementia Dispo: Admit to [facility] [place] observation Lab Data Labs: Laboratory Results - last 24 hr 05/23/23 05/23/23 21:40 22:46 WBC 6.7 RBC 3.66 L Hgb 12.7 L Hct 36.2 L MCV 98.9 H MCH 34.7 H MCHC 35.1 RDW Std Deviation 47.5 H RDW Coeff of [place] 13.1 Plt Count 226 MPV 10.3 Immature Gran % (Auto) 0.300 Neut % (Auto) 61.6 Lymph % (Auto) 22.6 [place] % (Auto) 13.3 H Eos % (Auto) 1.6 Baso % (Auto) 0.6 Absolute Neuts (auto) 4.1 Absolute Lymphs (auto) 1.51 Nucleated RBC % 0 Sodium 140 Potassium 3.4 L Chloride 107 Carbon Dioxide 28.0 Anion Gap 5 BUN 35 H Creatinine 1.22 Estim Creat Clear Calc 46.72 Est GFR (MDRD) Af Amer 73 Est GFR (MDRD) Non-Af 61 BUN/Creatinine Ratio 28.7 H Glucose 94 Calcium 8.7 Total Bilirubin 0.30 AST 21 ALT 23 Alkaline Phosphatase 102 Troponin I High Sens 17 Total Protein 7.0 Albumin 3.8 Globulin 3.2 Albumin/Globulin Ratio 1.2 Urine Color Yellow Urine Clarity Clear Urine pH 5.0 Ur Specific [place] 1.025 Urine Protein Negative Urine Glucose (UA) Normal Urine Ketones Negative Urine Occult Blood Negative Urine Nitrite Negative Urine Bilirubin Negative Urine Urobilinogen Normal Ur Leukocyte Esterase Negative Urine RBC 0 SEEN Urine WBC 0 SEEN Ur Squamous Epith Cells 0 SEEN Urine Bacteria 0 SEEN Urine Mucus 0 SEEN Radiography Diagnostic Testing: Clinical Impression(s) from Imaging Studies Chest X-Ray 05/23/23 22:15 IMPRESSION: No radiographic evidence of acute cardiopulmonary disease. Electronically Signed: Satya Soliz MD at 22:30 EDT , Brain CT 05/23/23 22:40 IMPRESSION: Overall no significant interval change compared to prior study. Normal pressure hydrocephalus can be considered in the appropriate clinical setting. No acute hemorrhage. Chronic small vessel disease. Electronically Signed: Satya Soliz MD at 23:23 EDT , Lumbar Spine CT 05/23/23 22:40 IMPRESSION: No evidence of acute lumbar spinal fracture or spondylolisthesis. Degenerative change as outlined. Spinal curvature. Electronically Signed: Satya Soliz MD at 23:35 EDT , Cervical Spine CT 05/23/23 22:45 IMPRESSION: Degenerative change which contributes to multilevel listhesis. There is no acute fracture identified. Electronically Signed: Satya Soliz MD at 23:27 EDT , Thoracic Spine CT 05/23/23 22:45 IMPRESSION: No thoracic spine fracture identified. Electronically Signed: Satya Soliz MD at 23:31 EDT , Discharge Plan Dx/Rx/DC Orders Clinical Impression: Gait disturbance, Lewy body dementia Disposition Disposition: Acute Care [facility]
--- NOTE | 2023-05-23 22:08 | EKG12_ITS ---
Test Reason : Blood Pressure : / mmHG Vent. Rate : 064 BPM Atrial Rate : 064 BPM P-R Int : 360 ms QRS Dur : 102 ms QT Int : 424 ms P-R-T Axes : 074 -30 037 degrees QTc Int : 437 ms Sinus rhythm with 1st degree A-V block with frequent Premature ventricular complexes Left axis deviation Minimal voltage criteria for LVH, may be normal variant ( R in aVL ) Nonspecific ST and T wave abnormality Abnormal ECG Confirmed by LAURA DOWNING, JAMMIE ([id number]), advertising editor JAIRO CARO ([id number]) on 05/25/2023 2:39:21 PM Referred By: Confirmed By:JAMMIE SANCHEZ MD
--- NOTE | 2023-05-23 22:15 | RAD_ITS ---
INDICATION: weakness EXAMINATION/TECHNIQUE: X-RAY - XR Chest 1 View COMPARISON: July 07, 2021. FINDINGS: LINES/DEVICES: None. LUNGS: No consolidation, edema or effusion. No pneumothorax. MEDIASTINUM AND CARDIOVASCULAR STRUCTURES: Cardiac silhouette not enlarged. Central airways and mediastinal contour are stable. BONES AND SOFT TISSUES: Stable. RAD/Chest 1 View (Portable) IMPRESSION: No radiographic evidence of acute cardiopulmonary disease. Electronically Signed: Satya Soliz MD at 22:30 EDT ,
[2023-05-23 22:30] VITALS: BP 138/77; PULSE 60; RESP 16; TEMP 36.9; O2SAT 98
[2023-05-23 22:33] LABS: ALB/GLOB Ratio 1.2 RATIO (0.9-2.4); AST(SGOT) 21 U/L (15-37); Alanine Aminotransfer ALT/SGPT 23 U/L (16-61); Albumin, Serum 3.8 g/dL (3.2-5.0); Alkaline Phosphatase 102 U/L (45-117); Anion Gap 5 (5-15); BUN 35 mg/dL (7-18); BUN/Creat Ratio 28.7 RATIO (10-20); Calcium,Total 8.7 mg/dL (8.5-10.1); Chloride 107 mmol/L (98-107); Creatinine, Serum 1.22 mg/dL (0.70-1.30); EST Glomerular Filtration Rate 61 mL/min (>60); Est Glom Filt Rate - Afr Amer 73 mL/min (>60); Estimated Creatinine Clearance 46.72 ml/min; Globulin 3.2 g/dL (2.2-4.2); Glucose 94 mg/dL (74-106); Potassium 3.4 mmol/L (3.5-5.1); Sodium Level 140 mmol/L (136-145); Troponin-I HS 17 pg/mL (3.0-78.0)
[2023-05-23 22:35] LABS: Absolute Lymphocyte Count 1.51 X10^3/uL (0.83-4.51); Absolute Neutrophil Count 4.1 X10^3/uL (2.0-7.7); Basophil# 0.04 X10^3/uL; Basophil% 0.6 % (0-1); Eosinophil# 0.11 X10^3/uL; Eosinophils% 1.6 % (0-5); Hematocrit 36.2 % (40-54); Hemoglobin 12.7 g/dL (13.0-16.5); Lymphocyte # 1.51 X10^3/ul (0.83-4.51); Lymphocyte % 22.6 % (19-41); Mean Corp Hgb Conc 35.1 g/dL (32-36); Mean Corpuscular Hgb 34.7 pg (27.0-32.0); Mean Corpuscular Volume 98.9 fL (80-94); Mean Platelet Vol. 10.3 fl (6.2-12.0); Monocyte# 0.89 X10^3/uL; Monocyte% 13.3 % (0-10); NRBC Flagged by Analyzer 0 % (0-5); Neutrophil # 4.11 X10^3/uL (2.7-7.7); Neutrophil % 61.6 % (47-70); Platelet Count 226 K/mm3 (150-450); RBC Distribution Width CV 13.1 % (11.6-14.6); RBC Distribution Width SD 47.5 fl (35.1-43.9); Red Blood Count 3.66 M/mm3 (4.6-6.2); White Blood Count 6.7 K/mm3 (4.4-11.0)
--- NOTE | 2023-05-23 22:40 | CT_ITS ---
INDICATION: lower extremity weakness recent falls EXAMINATION: CT LUMBAR SPINE - CT Spine Lumbar W/O Contrast Injection TECHNIQUE: Helically acquired images were obtained of the lumbar spine. 2D reformats were reviewed. A radiation dose optimization technique was used for this scan. IV Contrast dosage and agent: None. COMPARISON: None. FINDINGS: Final curvature convex rightward centered at about L2/L3. Slight anterolisthesis of L4 on L5. Mild to moderate intervertebral disc narrowing L1-L5 with moderate narrowing at L5/S1. Multilevel facet arthropathy is detected. T12/L1: Mild broad-based bulge. No canal stenosis. There is at least mild bilateral foraminal narrowing. L1/L2: Moderate broad-based bulge. Mild canal stenosis. There is at least mild right and mild to moderate left-sided neural foraminal narrowing contributed to by degenerative change. L2/L3: Mild broad-based bulge. Ligamentum flavum and facet degenerative change. Mild right and mild to moderate left-sided neural foraminal narrowing. L3/L4: Broad-based bulge. Mild central canal narrowing. There is mild to moderate bilateral foraminal narrowing. L4/L5: Anterolisthesis. Uncovering of the posterior intervertebral disc with moderate broad-based bulge. There is at least moderate central canal stenosis. Bulky bilateral facet disease. Severe left and moderate to severe right-sided neural foraminal narrowing identified. L5/S1: Broad-based bulge. Spinal canal is probably intact. There is severe foraminal narrowing bilaterally contributed to by degenerative change. Diverticulosis. Atherosclerotic aortoiliac disease. CT/Spine Lumbar without Contrast IMPRESSION: No evidence of acute lumbar spinal fracture or spondylolisthesis. Degenerative change as outlined. Spinal curvature. Electronically Signed: Satya Soliz MD at 23:35 EDT ,
--- NOTE | 2023-05-23 22:40 | CT_ITS ---
INDICATION: weakness EXAMINATION: CT BRAIN - CT Head or Brain W/O Contrast Injection TECHNIQUE: Multiple axial images were obtained of the head without intravenous contrast. A radiation dose optimization technique was used for this scan. IV Contrast dosage and agent: None. COMPARISON: October 27, 2022 FINDINGS: This patient has cortical and central involutional change which is moderate and similar to the prior examination. Ventricular prominence is slightly out of proportion to the amount of involutional change. Periventricular and deep white matter hypodensities are seen bilaterally, also similar to prior. Grossly intact basal ganglia. Some hypodensity around the insular regions bilaterally and right caudate head are similar to prior. No mass, mass effect or acute hemorrhage. Mastoid air cells are clear. Paranasal sinuses are clear. Cataract surgery. CT/Brain/Head without Contrast IMPRESSION: Overall no significant interval change compared to prior study. Normal pressure hydrocephalus can be considered in the appropriate clinical setting. No acute hemorrhage. Chronic small vessel disease. Electronically Signed: Satya Soliz MD at 23:23 EDT ,
--- NOTE | 2023-05-23 22:45 | CT_ITS ---
INDICATION: fall, neck pain EXAMINATION: CT CERVICAL SPINE - CT Spine Cervical W/O Contrast Injection TECHNIQUE: Helically acquired images were obtained of the cervical spine. 2D reformatted images were reviewed. A radiation dose optimization technique was used for this scan. IV Contrast dosage and agent: None. COMPARISON: None. FINDINGS: There is no acute fracture. Retrolisthesis C3 on C4, C4 on C5 and C5 on C6 as well as C6 and C7. Anterolisthesis of C7 on T1. Moderate to severe discal narrowing C3-C6 with moderate to severe narrowing C6/C7 and moderate narrowing at C7/T1. There is fusion at the right facet joints at C7/1. Significant multilevel foraminal narrowing which is severe at right C3/C4 and C6/C7. Narrowing is moderate at other levels. Left-sided foraminal narrowing most significant at C3/C4, C4/C5 and C6/C7. Prevertebral soft tissues are within normal limits. There is no malalignment at C1/C2. Visualized lung apices are clear. CT/Spine Cervical without Contras IMPRESSION: Degenerative change which contributes to multilevel listhesis. There is no acute fracture identified. Electronically Signed: Satya Soliz MD at 23:27 EDT ,
--- NOTE | 2023-05-23 22:45 | CT_ITS ---
INDICATION: falls, back pain weakness EXAMINATION: CT THORACIC SPINE - CT Spine Thoracic W/O Contrast Injection TECHNIQUE: Helically acquired images were obtained of the thoracic spine. 2D reformats were reviewed. A radiation dose optimization technique was used for this scan. IV Contrast dosage and agent: None. COMPARISON: None. FINDINGS: Thoracic spine vertebral bodies are aligned. No listhesis. There is moderate multilevel intervertebral disc narrowing and mild to moderate multilevel anterior osteophyte formation. No significant central canal stenosis appreciated. No spinous process fracture. No transverse process fracture. Multilevel thoracic spine neuroforaminal narrowing is present contribute to by degenerative change. Visualized portions of the lungs demonstrate some atelectatic change. Visualized portions of the retroperitoneum show no acute abnormality. There is coronary artery disease. No pathologic mediastinal adenopathy detected. CT/Spine Thoracic without Contras IMPRESSION: No thoracic spine fracture identified. Electronically Signed: Satya Soliz MD at 23:31 EDT ,
[2023-05-23 22:53] LABS: Bacteria 0 SEEN /hpf (None Seen); Mucous, Urine 0 SEEN /hpf (<or=2+); Red Blood Cells-Urine 0 SEEN /hpf (0-5); Squamous Epithelial Cells - UA 0 SEEN /hpf (0-5); White Blood Cells 0 SEEN /hpf (0-5)
[2023-05-23 22:58] LABS: Color, Urine Yellow (Yellow); Glucose, Dipstick Normal (Normal); Ketone-Dipstick Negative (Negative); Leukocyte Esterase-Dipstick Negative /ul (Negative); Nitrite-Dipstick Negative (Negative); Occult Blood-Urine Negative /ul (Negative); Protein-Dipstick Negative (Negative); Specific Gravity, Urine 1.025 (1.002-1.030); Urine Bilirubin Dipstick Negative (Negative); Urine Clarity Clear (Clear); Urine Urobilinogen Normal (Normal)
[2023-05-23 23:30] VITALS: BP 141/82; PULSE 59; RESP 16; TEMP 36.8; O2SAT 98
[2023-05-23 23:49] VITALS: BP 142/80; PULSE 60; RESP 16; TEMP 36.7; O2SAT 98
--- NOTE | 2023-05-24 00:51 | PCM.HP.STD ---
HPI - General General Date of Admission: 05/24/23 Date of Service: 05/24/23 Chief Complaint: Weakness HPI Narrative TATIANA MARCELO, is a 83 M with a significant history of Lewy body dementia; AVNRT; and other arrhythmias who presents to the emergency department from an assisted living facility. Reportedly for the past 6 months patient has been progressively weak. He is unsteady on his feet. On the day presentation his symptoms got worse. Per report received by ED doctor patient may have been falling. History was taken for emergency department doctor as patient was unable to provide history. Per patient he is at a hospital to be checked out. [facility] Medical History Anemia AVNRT (AV reina re-entry tachycardia) Bradycardia DDD (degenerative disc disease), lumbar Diverticulosis Junctional tachycardia Leukopenia Lewy body dementia Multiple premature ventricular complexes Nonrheumatic mitral (valve) insufficiency Osteoarthritis Home Medications aspirin 81 mg tablet,delayed release (Adult Aspirin Regimen) 81 mg PO DAILY 05/29/21 [History Last Taken Unknown] cholecalciferol (vitamin D3) 50 mcg (2,000 unit) capsule 50 mcg PO DAILY 05/29/21 [History Last Taken 07/10/21] cyanocobalamin (vitamin B-12) 1,000 mcg capsule 1,000 mcg PO DAILY 05/29/21 [History Last Taken 07/10/21] ibuprofen 200 mg capsule 400 mg PO Q6H PRN Pain 05/29/21 [History Last Taken Unknown] memantine 10 mg tablet 10 mg PO BID 05/29/21 [History Last Taken 07/10/21] pravastatin 10 mg tablet 10 mg PO DAILY 07/07/21 [History Last Taken 07/10/21] turmeric 400 mg capsule 400 mg PO DAILY 07/07/21 [History Last Taken Unknown] furosemide 40 mg tablet 40 mg PO DAILY #90 tabs 03/16/23 [Rx Last Taken Unknown] loperamide 2 mg tablet 2 mg PO Q6H PRN 03/16/23 [History Last Taken Unknown] potassium chloride 20 mEq tablet,extended release 20 meq PO DAILY #90 tabs 03/16/23 [Rx Last Taken Unknown] quetiapine 25 mg tablet (Seroquel) 25 mg PO QHS 03/16/23 [History Last Taken Unknown] Allergy/AdvReac Type Severity Reaction Status Date / Time No Known Allergies Allergy Verified 03/16/23 10:41 Family History Father Cancer lung cancer Mother Cancer Other Heart disease Surgical History History of radiofrequency ablation procedure for cardiac arrhythmia (07/10/21) Social History Smoking Status: Former smoker quit date: 08/23/83 alcohol intake: current alcohol intake frequency: a few times a week Alcohol type: beer substance use type: does not use caffeine: Yes Type: coffee Number of servings: 6 ROS Review of Systems ROS Unobtainable: due to mental status Vital Signs Vital Signs Vital Signs: 05/23/23 21:27 05/23/23 22:30 05/23/23 23:30 Temperature 97.6 F L 98.4 F 98.2 F Temperature Source Temporal Oral Oral Pulse Rate 79 60 59 L Respiratory Rate 13 16 16 Blood Pressure 142/86 H 138/77 H 141/82 H Blood Pressure Mean 104 97 101 Pulse Ox 97 98 98 Oxygen Delivery Method Room Air 05/23/23 23:49 Temperature 98.1 F Temperature Source Oral Pulse Rate 60 Respiratory Rate 16 Blood Pressure 142/80 H Blood Pressure Mean 100 Pulse Ox 98 Oxygen Delivery Method Room Air Weight Weight: 92.3 kg Body Mass Index (BMI) 30.9 Physical Exam Narrative Physical exam: General: Well-nourished, well-developed. Head: Normocephalic, atraumatic, no tenderness Eyes: Vision is grossly intact. EOMI ENT, no trauma, moist mucous membranes, no rhinorrhea Neck: Nontender, No thyromegaly. CVS: Regular rate and rhythm. S1-S2 present. No murmur, gallop or rub. Respiratory : clear to auscultation bilaterally, chest wall nontender Abdomen: Soft, nontender, nondistended, normal bowel sounds, no masses : Deferred Back: Nontender, no CVA tenderness. Extremities: Nontender full range of motion, no trauma Skin: Normal color, no trauma, abrasions Neuro: Alert, patient knows that he is in the hospital. Patient knows the month. He thinks that is the third or fourth of the month fall it was just past midnight and into the second. Does not know the year. Does not know exactly why he is in the hospital. Psychiatry: Normal mood. Normal affect. Not depressed. Not anxious. Results Lab / Micro Data 05/23/23 21:40 05/23/23 21:40 Labs: Laboratory Results - last 24 hr 05/23/23 21:40: WBC 6.7, RBC 3.66 L, Hgb 12.7 L, Hct 36.2 L, MCV 98.9 H, MCH 34.7 H, MCHC 35.1, RDW Std Deviation 47.5 H, RDW Coeff of [place] 13.1, Plt Count 226, MPV 10.3, Immature Gran % (Auto) 0.300, Neut % (Auto) 61.6, Lymph % (Auto) 22.6, [place] % (Auto) 13.3 H, Eos % (Auto) 1.6, Baso % (Auto) 0.6, Absolute Neuts (auto) 4.1, Absolute Lymphs (auto) 1.51, Nucleated RBC % 0, Sodium 140, Potassium 3.4 L, Chloride 107, Carbon Dioxide 28.0, Anion Gap 5, BUN 35 H, Creatinine 1.22, Estim Creat Clear Calc 46.72, Est GFR (MDRD) Af Amer 73, Est GFR (MDRD) Non-Af 61, BUN/Creatinine Ratio 28.7 H, Glucose 94, Calcium 8.7, Total Bilirubin 0.30, AST 21, ALT 23, Alkaline Phosphatase 102, Troponin I High Sens 17, Total Protein 7.0, Albumin 3.8, Globulin 3.2, Albumin/Globulin Ratio 1.2 05/23/23 22:46: Urine Color Yellow, Urine Clarity Clear, Urine pH 5.0, Ur Specific [place] 1.025, Urine Protein Negative, Urine Glucose (UA) Normal, Urine Ketones Negative, Urine Occult Blood Negative, Urine Nitrite Negative, Urine Bilirubin Negative, Urine Urobilinogen Normal, Ur Leukocyte Esterase Negative, Urine RBC 0 SEEN, Urine WBC 0 SEEN, Ur Squamous Epith Cells 0 SEEN, Urine Bacteria 0 SEEN, Urine Mucus 0 SEEN Micro: Microbiology 05/23/23 22:10 Nasal Secretion SARS-CoV-2 Antigen (Rapid) - Final Radiology Impression Chest X-Ray 05/23/23 22:15 IMPRESSION: No radiographic evidence of acute cardiopulmonary disease. Electronically Signed: Satya Soliz MD at 22:30 EDT , Brain CT 05/23/23 22:40 IMPRESSION: Overall no significant interval change compared to prior study. Normal pressure hydrocephalus can be considered in the appropriate clinical setting. No acute hemorrhage. Chronic small vessel disease. Electronically Signed: Satya Soliz MD at 23:23 EDT , Lumbar Spine CT 05/23/23 22:40 IMPRESSION: No evidence of acute lumbar spinal fracture or spondylolisthesis. Degenerative change as outlined. Spinal curvature. Electronically Signed: Satya Soliz MD at 23:35 EDT , Cervical Spine CT 05/23/23 22:45 IMPRESSION: Degenerative change which contributes to multilevel listhesis. There is no acute fracture identified. Electronically Signed: Satya Soliz MD at 23:27 EDT Reading Location ID and State: [id number] / [place] Tel , Service support , Thoracic Spine CT 05/23/23 22:45 IMPRESSION: No thoracic spine fracture identified. Electronically Signed: Satya Soliz MD at 23:31 EDT , Assessment & Plan Assessment/Plan (1) Debility: (2) Lewy body dementia: QUALIFIERS: Dementia severity: severe Dementia behavioral or psychological symptom: with mood disturbance Qualified Code(s): G31.83 - Neurocognitive disorder with Lewy bodies; F02.C3 - Dementia in other diseases classified elsewhere, severe, with mood disturbance PLAN: Plan Lewy body dementia with debility. CBC reviewed showed normal white count. Mild anemia. Reportedly family is looking into patient getting into the skilled parts/memory unit of [facility]. Reportedly currently lives at the assisted living part of same facility. PT and OT to evaluate patient. Case management consult. We will check vitamin B12, and TSH. Urinalysis was reviewed. Urinalysis is negative. DVT prophylaxis Subcu Lovenox ordered. Time spent in the patient's overall evaluation,decision-making process, review of diagnostic data, adjustment of management, discussion with other providers, nursing nursing and ancillary staff involved in patient's care documentation, 45 minutes. Charges/Coding Visit Charges Inpatient E&M: 17098 Init Hosp L2
[2023-05-24 01:03] VITALS: BP 145/72; PULSE 56; RESP 16; TEMP 36.9; O2SAT 98
[2023-05-24 01:27] VITALS: BMI 27.0
[2023-05-24 01:33] VITALS: BP 127/76; PULSE 84; RESP 17; TEMP 36.6; O2SAT 95
[2023-05-24] MEDS: Potassium Chloride Oral Tablet 20 MEQ 40 MEQ PO (01:42)
[2023-05-24 05:09] LABS: Absolute Lymphocyte Count 1.24 X10^3/uL (0.83-4.51); Absolute Neutrophil Count 4.5 X10^3/uL (2.0-7.7); Basophil# 0.05 X10^3/uL; Basophil% 0.7 % (0-1); Eosinophil# 0.15 X10^3/uL; Eosinophils% 2.2 % (0-5); Hematocrit 32.8 % (40-54); Hemoglobin 11.1 g/dL (13.0-16.5); Lymphocyte # 1.24 X10^3/ul (0.83-4.51); Lymphocyte % 18.6 % (19-41); Mean Corp Hgb Conc 33.8 g/dL (32-36); Mean Corpuscular Hgb 33.3 pg (27.0-32.0); Mean Corpuscular Volume 98.5 fL (80-94); Mean Platelet Vol. 10.1 fl (6.2-12.0); Monocyte# 0.74 X10^3/uL; Monocyte% 11.1 % (0-10); NRBC Flagged by Analyzer 0 % (0-5); Neutrophil # 4.48 X10^3/uL (2.7-7.7); Neutrophil % 67.1 % (47-70); Platelet Count 204 K/mm3 (150-450); RBC Distribution Width CV 13.2 % (11.6-14.6); RBC Distribution Width SD 47.6 fl (35.1-43.9); Red Blood Count 3.33 M/mm3 (4.6-6.2); White Blood Count 6.7 K/mm3 (4.4-11.0)
[2023-05-24 06:15] LABS: Anion Gap 5 (5-15); BUN 30 mg/dL (7-18); BUN/Creat Ratio 29.1 RATIO (10-20); Calcium,Total 8.1 mg/dL (8.5-10.1); Chloride 110 mmol/L (98-107); Creatinine, Serum 1.03 mg/dL (0.70-1.30); EST Glomerular Filtration Rate 74 mL/min (>60); Est Glom Filt Rate - Afr Amer 89 mL/min (>60); Estimated Creatinine Clearance 58.08 ml/min; Glucose 95 mg/dL (74-106); Potassium 3.5 mmol/L (3.5-5.1); Sodium Level 140 mmol/L (136-145); Thyroid Stim Hormone (TSH) 0.91 uIU/mL (0.358-3.74)
[2023-05-24 07:00] VITALS: BP 121/86; PULSE 68; RESP 16; TEMP 37; O2SAT 95
[2023-05-24 07:15] VITALS: O2SAT 95
[2023-05-24] MEDS: Aspirin E.C. 81 MG Tablet PO (08:15)
[2023-05-24] MEDS: Furosemide 40 MG Tablet PO (08:15)
[2023-05-24] MEDS: Enoxaparin 40 MG/0.4 ML Syringe SC (08:16)
[2023-05-24] MEDS: Cyanocobalamin 500 MCG Tablet 1000 MCG PO (08:16)
[2023-05-24] MEDS: Cholecalciferol (VIT D3) 25 MCG TABLET (1,000 UNITS) 50 MCG PO (08:16)
[2023-05-24 09:17] VITALS: BP 95/54; PULSE 66; RESP 16; TEMP 36.8; O2SAT 98
[2023-05-24 09:43] LABS: Vitamin B12 1040 pg/mL (211-911); Vitamin D,25 Hydroxy 42.8 ng/mL
--- NOTE | 2023-05-24 10:46 | CASEMGMT ---
Social Work SW met with patient and patient's and introduced self and role as [facility] SW. Patient sleeping in hospital bed; patient's agreeable to speak with SW. SW engaged patient's in conversation regarding discharge plan. Patient's reports she would prefer patient return to [facility] and transition to their memory care unit. Patient's explained she had been discussing this transition prior to patient being admitted and confirmed with [facility] this morning they have a bed available for patient on memory care unit. Patient's to transport back to [facility]. SW to contact [facility] to confirm plan, patient's agreeable. SW contacted [facility] and spoke with ELI Dozier. RN reports [facility] plans to have a care conference with patient's and staff to discuss change from AL to memory care. Per RN, patient will return to his AL room and transition to memory care. Care team updated. Plan: [facility] with plans to transition to memory care, to transport FADI Muñoz
[2023-05-24 11:35] VITALS: BP 99/62; PULSE 65; RESP 16; TEMP 36.7; O2SAT 96
--- NOTE | 2023-05-24 14:43 | PCM.TXEXTCAR ---
Diet Diet Order/Speech Therapy: 05/24/23 01:17 Diet: Cardiac - Heart Healthy Food consistency:: Regular Liquid Consistency:: Regular/Thin Routine Orders/Code Status Enema Type: Fleetz Enema Frequency: Daily PRN Suppository Type: Dulcolax 10mg Suppository Frequency: Daily PRN O2 Frequency: PRN Keep PO Greater than or Equal to (%): 90 Therapies Weight Bearing: Weight bearing as tolerated Physical Therapy: Eval and Treat Occupational Therapy: Eval and Treat Problem/Diagnosis (1) Debility: Status: Acute Code(s): R53.81 - Other malaise (2) Lewy body dementia: Status: Chronic Code(s): G31.83 - Neurocognitive disorder with Lewy bodies; F02.80 - Dementia in other diseases classified elsewhere, unspecified severity, without behavioral disturbance, psychotic disturbance, mood disturbance, and anxiety Allergies/Procedures Done in Hospital Allergies No Known Allergies Allergy (Verified 03/16/23 10:41) Procedures: None Type of Care/Length of Stay Estimated LOS: Convalescent Care Less Than 30 days Type of Care Needed: Skilled Rehab Potential: Fair Prognosis: Fair Additional Orders/Day of Discharge Day of Discharge: 05/24/23 Dietary and Speech Recommendations Dietitian Recommendations/Changes: Continue cardiac diet Will discontinue ensure compact tid w/ medpass d/t gradual wt gain and 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 Discharge Plan Admission Admit Date/Time: 05/24/23 00:44 Primary Reason for Your Visit: debility and weakness, worsening Lewy Body dementia Attending Provider: Phyllis Sotomayor Primary Care Provider: Michael Ramachandran Consulting Providers: Marcos Duggan Instructions Patient Instructions: Dementia Patients Caregiver, Understanding Dementia Discharge Orders/Prescriptions Prescriptions: Continued memantine 10 mg tablet 10 mg PO BID cyanocobalamin (vitamin B-12) 1,000 mcg capsule 1,000 mcg PO DAILY aspirin [Adult Aspirin Regimen] 81 mg tablet,delayed release (DR/EC) 81 mg PO DAILY cholecalciferol (vitamin D3) 50 mcg (2,000 unit) capsule 50 mcg PO DAILY ibuprofen 200 mg capsule 400 mg PO Q6H PRN (Reason: Pain) Hold Instructions: Order Completed pravastatin 10 mg tablet 10 mg PO DAILY turmeric 400 mg capsule 500 mg PO DAILY loperamide 2 mg tablet 2 mg PO Q6H PRN (Reason: .) quetiapine [Seroquel] 25 mg tablet 25 mg PO QHS magnesium hydroxide [Milk of Magnesia] 400 mg/5 mL suspension 30 ml PO DAILY naproxen 500 mg tablet 500 mg PO BID PRN (Reason: pain) Patient Comments: Take 1 tablet by mouth twice daily as needed (for pain/inflammation). Take with food. acetaminophen [Aphen] 325 mg tablet 650 mg PO Q4H PRN (Reason: fever or pain) furosemide 40 mg tablet 20 mg PO DAILY Referrals / Follow Up: Michael Ramachandran DO [Primary Care Provider] - Within 1 Week Disposition Disposition (needs filled in before D/C Order can be placed): Shelter Facility (2) Lewy body dementia Qualifiers: Dementia severity: severe Dementia behavioral or psychological symptom: with mood disturbance Qualified Code(s): G31.83 - Neurocognitive disorder with Lewy bodies; F02.C3 - Dementia in other diseases classified elsewhere, severe, with mood disturbance
--- NOTE | 2023-05-24 14:47 | PCM.DC.SUM ---
Providers Date of Admission: 05/24/23 Date of Discharge: 05/24/23 Primary Care Physician: Dr. Michael Ramachandran DO Reason For Visit: DEBILITY, WORSENING LEWY BODY DEMENTIA Diagnosis Discharge Diagnosis (1) Debility: Status: Acute Code(s): R53.81 - Other malaise (2) Lewy body dementia: Status: Chronic Code(s): G31.83 - Neurocognitive disorder with Lewy bodies; F02.80 - Dementia in other diseases classified elsewhere, unspecified severity, without behavioral disturbance, psychotic disturbance, mood disturbance, and anxiety Qualifiers: Dementia behavioral or psychological symptom: with mood disturbance Dementia severity: severe Qualified Code(s): G31.83 - Neurocognitive disorder with Lewy bodies; F02.C3 - Dementia in other diseases classified elsewhere, severe, with mood disturbance Medications at Discharge Home Medications aspirin 81 mg tablet,delayed release (Adult Aspirin Regimen) 81 mg PO DAILY 05/29/21 cholecalciferol (vitamin D3) 50 mcg (2,000 unit) capsule 50 mcg PO DAILY 05/29/21 cyanocobalamin (vitamin B-12) 1,000 mcg capsule 1,000 mcg PO DAILY 05/29/21 ibuprofen 200 mg capsule 400 mg PO Q6H PRN Pain 05/29/21 memantine 10 mg tablet 10 mg PO BID 05/29/21 pravastatin 10 mg tablet 10 mg PO DAILY 07/07/21 turmeric 400 mg capsule 500 mg PO DAILY 07/07/21 loperamide 2 mg tablet 2 mg PO Q6H PRN . 03/16/23 quetiapine 25 mg tablet (Seroquel) 25 mg PO QHS 03/16/23 acetaminophen 325 mg tablet (Aphen) 650 mg PO Q4H PRN fever or pain 05/24/23 furosemide 40 mg tablet 20 mg PO DAILY water pill 05/24/23 magnesium hydroxide 400 mg/5 mL oral suspension (Milk of Magnesia) 30 ml PO DAILY 05/24/23 naproxen 500 mg tablet 500 mg PO BID PRN pain 05/24/23 Hospital Course Operations None Procedures None Summary of Care Provided Minutes Spent on Discharge: 47 Hospital Course: Patient is an 83 y/o male with a PMH of Lewy Body dementia and AVNRT who was admitted via the ED on 05/23/2023 with a complaint of worsening weakness. He was in an assisted living facility and he had gradually been getting weaker and there was concern he had been falling more at home. CT of the brain showed no significant interval change compared to prior study. Lumbar spinal CT showed no evidence of acute lumbar spinal fracture or spondylolisthesis with no acute fracture identified. Family wished for him to go to the Memory Care of his facility. Case management was consulted and he was able to be discharged on to the Memory Care Unit of [facility]. He is to follow up with his PCP within 1-2 weeks. Patient seen and examined. He had no complaints and had an uneventful night. Review of systems is otherwise negative. Labs and vitals reviewed. Home meds reviewed and reconciled. Weight / BMI Weight Weight: 188 lb 4.396 oz Body Mass Index (BMI) 27.0 ABG / Lab / Microbiology Data 05/24/23 04:52 05/24/23 04:52 Laboratory: Laboratory Results - last 24 hr 05/23/23 21:40: WBC 6.7, RBC 3.66 L, Hgb 12.7 L, Hct 36.2 L, MCV 98.9 H, MCH 34.7 H, MCHC 35.1, RDW Std Deviation 47.5 H, RDW Coeff of [place] 13.1, Plt Count 226, MPV 10.3, Immature Gran % (Auto) 0.300, Neut % (Auto) 61.6, Lymph % (Auto) 22.6, [place] % (Auto) 13.3 H, Eos % (Auto) 1.6, Baso % (Auto) 0.6, Absolute Neuts (auto) 4.1, Absolute Lymphs (auto) 1.51, Nucleated RBC % 0, Sodium 140, Potassium 3.4 L, Chloride 107, Carbon Dioxide 28.0, Anion Gap 5, BUN 35 H, Creatinine 1.22, Estim Creat Clear Calc 46.72, Est GFR (MDRD) Af Amer 73, Est GFR (MDRD) Non-Af 61, BUN/Creatinine Ratio 28.7 H, Glucose 94, Calcium 8.7, Total Bilirubin 0.30, AST 21, ALT 23, Alkaline Phosphatase 102, Troponin I High Sens 17, Total Protein 7.0, Albumin 3.8, Globulin 3.2, Albumin/Globulin Ratio 1.2 05/23/23 22:46: Urine Color Yellow, Urine Clarity Clear, Urine pH 5.0, Ur Specific [place] 1.025, Urine Protein Negative, Urine Glucose (UA) Normal, Urine Ketones Negative, Urine Occult Blood Negative, Urine Nitrite Negative, Urine Bilirubin Negative, Urine Urobilinogen Normal, Ur Leukocyte Esterase Negative, Urine RBC 0 SEEN, Urine WBC 0 SEEN, Ur Squamous Epith Cells 0 SEEN, Urine Bacteria 0 SEEN, Urine Mucus 0 SEEN 05/24/23 04:52: WBC 6.7, RBC 3.33 L, Hgb 11.1 L, Hct 32.8 L, MCV 98.5 H, MCH 33.3 H, MCHC 33.8, RDW Std Deviation 47.6 H, RDW Coeff of [place] 13.2, Plt Count 204, MPV 10.1, Immature Gran % (Auto) 0.300, Neut % (Auto) 67.1, Lymph % (Auto) 18.6 L, [place] % (Auto) 11.1 H, Eos % (Auto) 2.2, Baso % (Auto) 0.7, Absolute Neuts (auto) 4.5, Absolute Lymphs (auto) 1.24, Nucleated RBC % 0, Sodium 140, Potassium 3.5, Chloride 110 H, Carbon Dioxide 25.0, Anion Gap 5, BUN 30 H, Creatinine 1.03, Estim Creat Clear Calc 58.08, Est GFR (MDRD) Af Amer 89, Est GFR (MDRD) Non-Af 74, BUN/Creatinine Ratio 29.1 H, Glucose 95, Calcium 8.1 L, Vitamin B12 1040 H, Vitamin D 25-Hydroxy 42.8, TSH 0.91 Microbiology: Microbiology 05/23/23 22:10 Nasal Secretion SARS-CoV-2 Antigen (Rapid) - Final Radiography Diagnostic Testing: Radiology Impression Chest X-Ray 05/23/23 22:15 IMPRESSION: No radiographic evidence of acute cardiopulmonary disease. Electronically Signed: Satya Soliz MD at 22:30 EDT , Brain CT 05/23/23 22:40 IMPRESSION: Overall no significant interval change compared to prior study. Normal pressure hydrocephalus can be considered in the appropriate clinical setting. No acute hemorrhage. Chronic small vessel disease. Electronically Signed: Satya Soliz MD at 23:23 EDT , Lumbar Spine CT 05/23/23 22:40 IMPRESSION: No evidence of acute lumbar spinal fracture or spondylolisthesis. Degenerative change as outlined. Spinal curvature. Electronically Signed: Satya Soliz MD at 23:35 EDT , Cervical Spine CT 05/23/23 22:45 IMPRESSION: Degenerative change which contributes to multilevel listhesis. There is no acute fracture identified. Electronically Signed: Satya Soliz MD at 23:27 EDT , Thoracic Spine CT 05/23/23 22:45 IMPRESSION: No thoracic spine fracture identified. Electronically Signed: Satya Soliz MD at 23:31 EDT , D/C Instructions Discharge Diet: No restrictions Discharge Activity: Return to Normal Activity Weight Bearing Status: Weight bearing as tolerated Call your doctor if you observe: Fever of 101 or Higher, Shortness of breath, Dizziness, Fainting spells, Swelling in the ankles, Chest pain and Increased palpitations (irregular heartbeat) Meaningful Use Info Meaningful Use Diagnoses (Choose all that apply): None applicable Discharge Plan Admission Admit Date/Time: 05/24/23 00:44 Primary Reason for Your Visit: debility and weakness, worsening Lewy Body dementia Attending Provider: Phyllis Sotomayor Primary Care Provider: Michael Ramachandrna Consulting Providers: Marcos Duggan Instructions Patient Instructions: Dementia Patients Caregiver, Understanding Dementia Discharge Orders/Prescriptions Prescriptions: Continued memantine 10 mg tablet 10 mg PO BID cyanocobalamin (vitamin B-12) 1,000 mcg capsule 1,000 mcg PO DAILY aspirin [Adult Aspirin Regimen] 81 mg tablet,delayed release (DR/EC) 81 mg PO DAILY cholecalciferol (vitamin D3) 50 mcg (2,000 unit) capsule 50 mcg PO DAILY ibuprofen 200 mg capsule 400 mg PO Q6H PRN (Reason: Pain) Hold Instructions: Order Completed pravastatin 10 mg tablet 10 mg PO DAILY turmeric 400 mg capsule 500 mg PO DAILY loperamide 2 mg tablet 2 mg PO Q6H PRN (Reason: .) quetiapine [Seroquel] 25 mg tablet 25 mg PO QHS magnesium hydroxide [Milk of Magnesia] 400 mg/5 mL suspension 30 ml PO DAILY naproxen 500 mg tablet 500 mg PO BID PRN (Reason: pain) Patient Comments: Take 1 tablet by mouth twice daily as needed (for pain/inflammation). Take with food. acetaminophen [Aphen] 325 mg tablet 650 mg PO Q4H PRN (Reason: fever or pain) furosemide 40 mg tablet 20 mg PO DAILY Referrals / Follow Up: Michael Ramachandran DO [Primary Care Provider] - Within 1 Week Disposition Disposition (needs filled in before D/C Order can be placed): Senior Living Facility Charges/Coding Visit Charges Inpatient E&M: 80399 Disch Hosp >30min
--- NOTE | 2023-05-24 15:04 | PHA.DC.MR.R ---
Pharmacy ID Med Reconciliation Pharmacy Service has performed discharge medication reconciliation for this patient. The patient's discharge medication list was reviewed for discrepancies and discrepancies were resolved. Medications at Discharge Home Medications aspirin 81 mg tablet,delayed release (Adult Aspirin Regimen) 81 mg PO DAILY 05/29/21 cholecalciferol (vitamin D3) 50 mcg (2,000 unit) capsule 50 mcg PO DAILY 05/29/21 cyanocobalamin (vitamin B-12) 1,000 mcg capsule 1,000 mcg PO DAILY 05/29/21 ibuprofen 200 mg capsule 400 mg PO Q6H PRN Pain 05/29/21 memantine 10 mg tablet 10 mg PO BID 05/29/21 pravastatin 10 mg tablet 10 mg PO DAILY 07/07/21 turmeric 400 mg capsule 500 mg PO DAILY 07/07/21 loperamide 2 mg tablet 2 mg PO Q6H PRN . 03/16/23 quetiapine 25 mg tablet (Seroquel) 25 mg PO QHS 03/16/23 acetaminophen 325 mg tablet (Aphen) 650 mg PO Q4H PRN fever or pain 05/24/23 furosemide 40 mg tablet 20 mg PO DAILY water pill 05/24/23 magnesium hydroxide 400 mg/5 mL oral suspension (Milk of Magnesia) 30 ml PO DAILY 05/24/23 naproxen 500 mg tablet 500 mg PO BID PRN pain 05/24/23
== END 2023-05-24 16:24 | disposition skilled nursing facility (03) ==
LOC: ED 05-24 00:45 → MS3 05-24 00:52
PROVIDERS: Admitting Provider Hospitalist; Emergency Provider Emergency Medicine; PCP Student in an Organized Health Care Education/Training Program; Visit Provider Student in an Organized Health Care Education/Training Program
DX: R53.81 Other malaise (principal); G31.83 Neurocognitive disorder with Lewy bodies; F02.83 Dementia in other diseases classified elsewhere, unspecified severity, with mood disturbance; F02.80 Dementia in other diseases classified elsewhere, unspecified severity, without behavioral disturbance, psychotic disturbance, mood disturbance, and anxiety; Z79.82 Long term (current) use of aspirin; E87.6 Hypokalemia; R26.9 Unspecified abnormalities of gait and mobility; Z87.891 Personal history of nicotine dependence; R53.1 Weakness; Z79.899 Other long term (current) drug therapy
CPT/HCPCS: 36415; 70450; 71045; 72125; 72128; 72131; 80048; 80053; 81001; 82306; 82607; 84443; 84484; 85025; 87811; 93005; 96372; 97162; 97166; 97802; 99221; 99285; A4216; G0378

== ENCOUNTER → 2023-06-11 | Outpatient (REF) | payer MEDICARE, SELFPAY ==
[2023-06-11 08:39] LABS: Cholesterol 153 mg/dL (200); High Density Lipoprotein 48 mg/dL; Triglycerides 85 mg/dL; Very Low Density Lipoprotein 17 mg/dL (5-40)
== END ==
LOC: OLS.DANBUR 05:00
PROVIDERS: PCP Student in an Organized Health Care Education/Training Program
DX: G30.1 Alzheimer's disease with late onset (principal); Z79.899 Other long term (current) drug therapy
CPT/HCPCS: 36415; 80061

== ENCOUNTER 2023-06-20 07:07 | Emergency (ER) | payer MEDICARE, SELFPAY ==
[2023-06-20 07:08] VITALS: BP 117/83; PULSE 53; RESP 16; TEMP 36.2; O2SAT 92; BMI 26.7
--- NOTE | 2023-06-20 07:16 | ED.VIS.FALL ---
HPI HPI - Fall History of Present Illness Chief Complaint: Fall Informant: patient and SNF Limited: dementia Occured/Mechanism Occurred: Today Mechanism/Context: Yes same level fall Pain/Injury Pain Location: lower extremity (Left knee) Worsened by: Nothing Relieved by: Nothing Associated Symptoms Associated Symptoms: Negative for Parasthesias or Loss of consciousness Narrative Narrative: Patient presents after a fall that occurred today. Patient is a poor informant. Patient has a history of dementia. Patient is unsure if he had any loss of consciousness when he fell. Patient does not think he hit his head. Patient admits to some mild pain over his left knee. Patient has a history of frequent falls and lives in extended-care facility. Patient denies any paresthesias or weakness. Patient does not appear to have any lacerations. states that the extended care facility was concerned about a shoulder injury. Patient does not complain of any shoulder pain or upper extremity pain. [facility] Medical History Anemia AVNRT (AV reina re-entry tachycardia) Bradycardia DDD (degenerative disc disease), lumbar Debility Diverticulosis Gait disturbance Junctional tachycardia Leukopenia Lewy body dementia Multiple premature ventricular complexes Nonrheumatic mitral (valve) insufficiency Osteoarthritis Home Medications aspirin 81 mg tablet,delayed release (Adult Aspirin Regimen) 81 mg PO DAILY 05/29/21 [History Last Taken Unknown] cholecalciferol (vitamin D3) 50 mcg (2,000 unit) capsule 50 mcg PO DAILY 05/29/21 [History Last Taken 07/10/21] cyanocobalamin (vitamin B-12) 1,000 mcg capsule 1,000 mcg PO DAILY 05/29/21 [History Last Taken 07/10/21] ibuprofen 200 mg capsule 400 mg PO Q6H PRN Pain 05/29/21 [History Last Taken Unknown] memantine 10 mg tablet 10 mg PO BID 05/29/21 [History Last Taken 07/10/21] pravastatin 10 mg tablet 10 mg PO DAILY 07/07/21 [History Last Taken 07/10/21] turmeric 400 mg capsule 500 mg PO DAILY 07/07/21 [History Last Taken Unknown] loperamide 2 mg tablet 2 mg PO Q6H PRN . 03/16/23 [History Last Taken Unknown] quetiapine 25 mg tablet (Seroquel) 25 mg PO QHS 03/16/23 [History Last Taken Unknown] acetaminophen 325 mg tablet (Aphen) 650 mg PO Q4H PRN fever or pain 05/24/23 [History Last Taken Unknown] furosemide 40 mg tablet 20 mg PO DAILY water pill 05/24/23 [History Last Taken Unknown] magnesium hydroxide 400 mg/5 mL oral suspension (Milk of Magnesia) 30 ml PO DAILY 05/24/23 [History Last Taken Unknown] naproxen 500 mg tablet 500 mg PO BID PRN pain 05/24/23 [History Last Taken Unknown] Allergy/AdvReac Type Severity Reaction Status Date / Time No Known Allergies Allergy Verified 03/16/23 10:41 Family History Father Cancer lung cancer Mother Cancer Other Heart disease Surgical History History of radiofrequency ablation procedure for cardiac arrhythmia (07/10/21) Social History Smoking Status: Former smoker quit date: 08/23/83 alcohol intake: current alcohol intake frequency: a few times a week Alcohol type: beer substance use type: does not use caffeine: Yes Type: coffee Number of servings: 6 ROS ROS ED Review of Systems ROS Unobtainable: due to mental condition EXAM Physical Exam Const Vital Signs: 06/20/23 07:08 Temperature 97.1 F L Temperature Source Temporal Pulse Rate 53 L Respiratory Rate 16 Blood Pressure 117/83 H Blood Pressure Mean 94 Pulse Ox 92 Positive well nourished and well developed General Appearance ED: well developed and NAD HEENT Reports normocephalic Neck full ROM and supple Resp normal respiratory effort and clear to auscultation bilaterally Cardio regular rate and regular rhythm GI non-tender and non-distended Palpation: soft Extremity Extremity Narrative: There is mild tenderness over the anterior medial aspect of the left knee. There is a small superficial abrasion over the anterior medial aspects of the left knee. There is no effusion noted. There is no ecchymosis noted. Range of motion was slightly limited in flexion of the knee secondary to pain. There is no pain with internal and external rotation of the hips bilaterally. There is no tenderness or deformity over the upper extremities. There is full range of motion of the upper extremities bilaterally. Pedal and radial pulses are equal bilaterally. There are no sensory deficits noted. Neuro CN's II-XII intact bilaterally, moves all extremities, no focal motor deficits and no sensory deficits noted [place] Coma Scale: document GCS findings Spontaneous Obeys Commands Confused 14 Sensorium / Orientation: alert Motor Exam: strength 5/5 throughout Psych mental status grossly normal MDM MDM MDM Narrative Medical decision making narrative: Differential diagnosis includes patella fracture, closed head injury, intracranial bleeding, and contusion. CT scan of the brain will be obtained to assess for intracranial bleeding. X-rays of the left knee will be obtained to assess for patella fracture. Radiography Diagnostic Testing: Clinical Impression(s) from Imaging Studies Brain CT 06/20/23 07:27 IMPRESSION: Chronic involutional changes of the brain. No acute hemorrhage Electronically Signed: Aron Gamboa MD at 8:31 EDT , Knee X-Ray 06/20/23 07:49 IMPRESSION: Age consistent degenerative changes, no acute findings Electronically Signed: Aron Gamboa MD at 8:32 EDT , CT scan of the brain was obtained. There is no acute intracranial abnormality. There are chronic changes noted. This was interpreted by the radiologist and was also independently reviewed by myself. X-rays of the left knee were obtained. There are 4 views. On my independent interpretation, there is no acute fracture or dislocation. There is no joint effusion noted. Radiologist also interpreted the x-rays and agrees. Treatment and Re-Evaluation Narrative: Patient is feeling better on reevaluation. Patient was advised of his findings. Patient was instructed to use ice to the left knee. Patient was instructed to take Tylenol as needed for pain. Patient was instructed to follow-up with his primary care physician in 5 to 7 days. understood and was agreeable with the plan. All questions were answered. Patient will be discharged back to his extended care facility. Discharge Plan Triage Chief Complaint: Fall ED Provider: Juancarlos Brandt Dx/Rx/DC Orders Clinical Impression: Closed head injury, Fall, Contusion of left knee, initial encounter Instructions: ED Contusion, Lower Extremity Prescriptions: No Action memantine 10 mg tablet 10 mg PO BID cyanocobalamin (vitamin B-12) 1,000 mcg capsule 1,000 mcg PO DAILY aspirin [Adult Aspirin Regimen] 81 mg tablet,delayed release (DR/EC) 81 mg PO DAILY cholecalciferol (vitamin D3) 50 mcg (2,000 unit) capsule 50 mcg PO DAILY ibuprofen 200 mg capsule 400 mg PO Q6H PRN (Reason: Pain) Hold Instructions: Order Completed pravastatin 10 mg tablet 10 mg PO DAILY turmeric 400 mg capsule 500 mg PO DAILY loperamide 2 mg tablet 2 mg PO Q6H PRN (Reason: .) quetiapine [Seroquel] 25 mg tablet 25 mg PO QHS magnesium hydroxide [Milk of Magnesia] 400 mg/5 mL suspension 30 ml PO DAILY naproxen 500 mg tablet 500 mg PO BID PRN (Reason: pain) Patient Comments: Take 1 tablet by mouth twice daily as needed (for pain/inflammation). Take with food. acetaminophen [Aphen] 325 mg tablet 650 mg PO Q4H PRN (Reason: fever or pain) furosemide 40 mg tablet 20 mg PO DAILY Primary Care Provider: Michael Ramachandran Referrals: Michael Ramachandran DO [Primary Care Provider] - 5-7 Days Disposition Disposition: [facility]charge Location: [facility]
--- NOTE | 2023-06-20 07:27 | CT_ITS ---
STUDY: CT BRAIN WITHOUT CONTRAST REASON FOR EXAM: Male, 83 years old. Headache after trauma RADIATION DOSAGE (If Supplied By Facility): CTDIvol = ( 44.99 ) mGy, DLP = ( 863.60 ) mGycm TECHNIQUE: Transaxial CT imaging of the brain was performed without administration of intravenous contrast material. Individualized dose optimization techniques were used for this CT. COMPARISON: 05/23/2023 FINDINGS: Normal soft tissue structures. Normal calvarium. There is mild cerebral atrophy with widening of the extra-axial spaces and ventricular dilatation. There are areas of decreased attenuation within the white matter tracts of the supratentorial brain, consistent with microvascular disease changes. Normal basal ganglia and thalami. Normal brainstem. There is mild cerebellar atrophy. There is no intracranial hemorrhage. There are no findings of an acute ischemic infarction. Normal visualized paranasal sinuses. CT/Brain/Head without Contrast IMPRESSION: Chronic involutional changes of the brain. No acute hemorrhage Electronically Signed: Aron Gamboa MD at 8:31 EDT ,
--- NOTE | 2023-06-20 07:49 | RAD_ITS ---
STUDY: X-RAY - LEFT KNEE REASON FOR EXAM: Male, 83 years old. Injury/Pain TECHNIQUE: 4 view(s) of the knee. COMPARISON: None. FINDINGS: Normal visualized distal femur. Normal visualized proximal tibia and fibula. Normal proximal tibiofibular articulation. There is moderate degenerative arthrosis of the medial femorotibial compartment with moderate joint space narrowing. Normal lateral femorotibial compartment. There is mild degenerative arthrosis of the patellofemoral articulation. There are atherosclerotic calcifications. RAD/Knee 4 or More Views IMPRESSION: Age consistent degenerative changes, no acute findings Electronically Signed: Aron Gamboa MD at 8:32 EDT ,
[2023-06-20 08:49] VITALS: BP 125/62
== END 2023-06-20 08:50 | disposition skilled nursing facility (03) ==
PROVIDERS: Emergency Provider Emergency Medicine; PCP Student in an Organized Health Care Education/Training Program; Visit Provider Emergency Medicine
DX: S09.90XA Unspecified injury of head, initial encounter (principal); F03.90 Unspecified dementia, unspecified severity, without behavioral disturbance, psychotic disturbance, mood disturbance, and anxiety; Z87.891 Personal history of nicotine dependence; S80.02XA Contusion of left knee, initial encounter; W19.XXXA Unspecified fall, initial encounter; Y92.89 Other specified places as the place of occurrence of the external cause; Z79.899 Other long term (current) drug therapy; Z79.82 Long term (current) use of aspirin
CPT/HCPCS: 70450; 73564; 99284